=== PATIENT | female | born 2000 | race Caucasian/White ===

== ENCOUNTER 2019-03-29 13:24 | Inpatient (IN) | payer BC ==
[~2019-03-29] VITALS: Ht 162.6 cm; Wt 76.4 kg
[2019-03-29 13:31] VITALS: BP 119/77; RESP 18
[2019-03-29 13:37] VITALS: Ht 162.6 cm; Wt 76.4 kg
[2019-03-29] MEDS ORDERED: [UNRECOGNIZED DRUG - CODE] PO (13:39)
[2019-03-29] MEDS ORDERED: MAGNESIUM SULFATE 4 GM/100 ML 100 ML IV ONE (19:00)
[2019-03-29] MEDS: LACTATED RINGER'S 1,000 ML IV SCH (21:18)
[2019-03-29] MEDS: BETAMET NA PHOS/AC(6 MG/ML) 2 ML INJ SYG IM SCH (21:35)
[2019-03-29] MEDS: MAGNESIUM SULFATE 20 GM/500 ML 500 ML IV SCH (21:56)
--- NOTE | 2019-03-29 22:18 | HP ---
Date/Time of Note Date/Time of Note DATE: 03/29/19 TIME: 21:55 OB - History Hx of Present Free Text/Dictation 18 y.o at 29w3d for size and date,BPP and JACOBO NST,for twin gestation EFW of twinA 1191gm BPP8/8 MVP 5.0 ,,,,,,,,,,,,,twin b 1321gm 8/8 MVP 5.8 plan to discharge home ,but she was c/o cramping pain on lower abdomen. CVL measure only 2.8 admitted for BMZx2 and magnesium sulfate nnnnnnnnnnnnnnnnnnnnnnnnnnnnnnnnnnnnnnnnn nnnnnnnnnnnnnnnnnnnnnnnnnnnnnnnnnnnnnnnnnnnnnnnnnnnnnnnnnnnnnnnnnnnnnnnnnnnnnnnnnnnnnnnnnnnnnnnnnnnnnnnnnnnnnnnnnnnnnnnnnnnnnnnn nnnnnnnnnnnnnnnnnnnnnnnnnnnnnnnnnnnnnnnnnnnnnnnnnnnnnnnnnnnnnnnnnnnnnnnnnnnnnnnnnnnnnnnnnnnnnnnnnnnnnnnnnnnnnnnnnnnnnnnnnnnnnnnn nnnnnnnnnnnn Chief Complaint: antepartum test for twin Estimated Due Date: Jun 22, 2019 : 2 Para: 0 Spontaneous : 0 Therapeutic : 0 Care: Good Care Ultrasounds: Normal mid trimester US Obstetrical Complications: None Medical Complications: None Past Family/Social History * Past Medical, Surgical, Family and Obstetric Histories reviewed from chart. Blood Type: Unknown Rubella: unknown RPR/VDRL: Unknown GBS Status: Unknown HBsAG: Unknown OB Admission Exam Vital Signs Vital Signs Vital Signs Date Temp Pulse Resp B/P (MAP) Pulse Ox O2 O2 Flow FiO2 Time Delivery Rate 03/29/19 98.6 18 119/77 13:31 (91) Physical Exam HEENT: WNL Heart: Rhythm Normal Lungs: Clear, Equal Abdomen: WNL Extremities: Normal Reflexes: Normal Effacement: Other Station: Other Amniotic Fluid: Other Heart Rate: 140's Accelerations: Accelerations Present Decelerations: Early Decelerations Varibility: Minimum Contractions on Admission: None Intensity: Mild OB Assessment/Plan Reason for admission: labor, other (antepartum test) Other Assessment: IUP 29w3d short cx P bmzX 2 magnesium sulfate for neuroprotection GEORGE TOMAS MD Mar 29, 2019 22:05
[2019-03-30] MEDS: PRENATAL VITAMIN PO SCH (08:16)
[2019-03-30] MEDS: FERROUS SULFATE (EC) 325 MG TAB PO SCH (08:16)
[2019-03-30] MEDS: MAGNESIUM SULFATE 20 GM/500 ML 500 ML IV SCH ×2 (08:18→19:48)
[2019-03-30] MEDS: LACTATED RINGER'S 1,000 ML IV SCH ×2 (11:52→12:53)
[2019-03-30] MEDS: BETAMET NA PHOS/AC(6 MG/ML) 2 ML INJ SYG IM SCH (21:46)
[2019-03-31] MEDS: LACTATED RINGER'S 1,000 ML IV SCH (00:18)
[2019-03-31] MEDS: MAGNESIUM SULFATE 20 GM/500 ML 500 ML IV SCH (07:00)
[2019-03-31] MEDS: FERROUS SULFATE (EC) 325 MG TAB PO SCH (10:20)
[2019-03-31] MEDS: PRENATAL VITAMIN PO SCH (10:20)
--- NOTE | 2019-03-31 14:47 | QN ---
Documentation Comment Late entry note for 03/30/2019 29+ wks GA twins with PTL / short cervix EFW twin A 1191gm BPP 8/8 MVP 5.0 twin B 1321gm 8/8 MVP 5.8 no complaints vs stable afebrile ab gravid nt extremity no edema no calf tenderness fhr both twins cat 1 toco no ctx A/P s/p sterids for lung maturity continue with mgso4 Continue with present management STEVE ROLLINS MD Mar 31, 2019 14:47
--- NOTE | 2019-03-31 19:17 | PN ---
Date/Time of Note Date/Time of Note DATE: 03/31/19 TIME: 19:14 OB Subjective Subjective Subjective Patient seen and examined. She states babies have been active.. She denies nausea, vomiting, shortness of breath, chest pain, abdominal pain between contractions, headache, visual changes, vaginal bleeding or LOF. OB Objective Objective Objective General: Patient appears well, alert and oriented, NAD, appropriate mood and affect ABD: gravid, soft, non-tender. Back: No CVA tenderness (B/L) LE: Mild edema. No clubbing, cyanosis, edema, thigh or calf tenderness bilaterally FHT: 130 and 135 bpm , moderate variability with acceleration, no deceleration- category I Contractions: None OB Assessment/Plan Other plan: 18 years old 2 para 0-0-1-0 with single intrauterine at the 28 weeks and 3 days with twin gestation and threatened PTL - heart rates: Category 1 -Status post receiving magnesium sulfate and betamethasone -She currently has no further uterine contractions -Symptoms and sign of labor, preeclampsia, kick count discussed with patient, she voiced understanding. All of her questions answered. -Patient was discharged home in stable condition with the appropriate discharge instructions provided. I would like patient to have close follow-up with her primary physician or outpatient clinic in 1-2 days or return to triage for worsening symptoms or any other urgent concerns. SUMAN TUCKER Mar 31, 2019 19:17
--- NOTE | 2019-03-31 19:18 | DS ---
Date/Time of Note Date/Time of Note DATE: 03/31/19 TIME: 19:17 Obstetrical Discharge Record Final Diagnosis Final Diagnosis: not delivered Other Final Diagnosis 18 years old 2 para 0-0-1-0 with single intrauterine at the 28 weeks and 3 days with twin gestation and threatened PTL - heart rates: Category 1 -Status post receiving magnesium sulfate and betamethasone -She currently has no further uterine contractions -Symptoms and sign of labor, preeclampsia, kick count discussed with patient, she voiced understanding. All of her questions answered. -Patient was discharged home in stable condition with the appropriate discharge instructions provided. I would like patient to have close follow-up with her primary physician or outpatient clinic in 1-2 days or return to triage for worsening symptoms or any other urgent concerns. Condition on Discharge Physical Assessment Voiding: Yes Bowel Movement: Yes Breast: Soft, non-tender Calf Tenderness: No Patient Condition: Stable SUMAN TUCKER Mar 31, 2019 19:18
== END 2019-03-31 19:50 | disposition home or self-care (01) | DRG 832 ==
LOC: OBT 13:24 → L-D 13:26 → OBT 16:30 → L-D 16:30
PROVIDERS: ADMIT Obstetrics & Gynecology; ATTEND Obstetrics & Gynecology
DX: O60.03 Preterm labor without delivery, third trimester (principal); O26.873 Cervical shortening, third trimester; O30.003 Twin pregnancy, unspecified number of placenta and unspecified number of amniotic sacs, third trimester; Z3A.29 29 weeks gestation of pregnancy
CPT/HCPCS: 76815; 76817; 76818; 83735; G0463; J0702; J3475; J7120

== ENCOUNTER 2019-05-30 15:17 | Inpatient (IN) | payer BC ==
[~2019-05-30] VITALS: Ht 142.2 cm; Wt 51.6 kg
[~2019-05-30 15:17] MED LIST: [UNRECOGNIZED DRUG - CODE] PO
[2019-05-30 15:35] VITALS: BMI 33.1
[2019-05-30] MEDS ORDERED: CEFAZOLIN 2 GM/50 ML (PMX) 50 ML IVPB SCH (17:00)
[2019-05-30] MEDS ORDERED: MISOPROSTOL 200 MCG TAB PR PRN (17:00)
[2019-05-30] MEDS ORDERED: OXYTOCIN 30 UNITS/LR 500 ML IV PRN (17:00)
[2019-05-30] MEDS ORDERED: METHYLERGONOVINE 0.2 MG INJ IM PRN (17:00)
[2019-05-30] MEDS ORDERED: CARBOPROST 250 MCG INJ IM PRN (17:00)
[2019-05-30] MEDS: LACTATED RINGER'S 1,000 ML IV SCH (22:35)
[2019-05-31] MEDS: LACTATED RINGER'S 1,000 ML IV SCH ×3 (02:44→19:56)
[2019-05-31 04:18] VITALS: Ht 142.2 cm; Wt 51.6 kg
[2019-05-31] MEDS ORDERED: LACTATED RINGER'S 1,000 ML IV PRN (04:20)
[2019-05-31] MEDS ORDERED: LACTATED RINGER'S 1,000 ML IV SCH (04:20)
[2019-05-31] MEDS ORDERED: METHYLERGONOVINE 0.2 MG INJ IM PRN (04:30)
[2019-05-31] MEDS ORDERED: BUTORPHANOL 2 MG INJ IV PRN (04:30)
[2019-05-31] MEDS ORDERED: LIDOCAINE 1% (MPF) 30 ML INJ INJ PRN (04:30)
[2019-05-31] MEDS ORDERED: IBUPROFEN 600 MG TAB PO PRN (04:30)
[2019-05-31] MEDS ORDERED: MISOPROSTOL 200 MCG TAB PR PRN (04:30)
[2019-05-31] MEDS ORDERED: OXYTOCIN 30 UNITS/LR 500 ML IV SCH ×2 (04:30)
[2019-05-31] MEDS ORDERED: OXYTOCIN 30 UNITS/LR 500 ML IV PRN (04:30)
[2019-05-31] MEDS ORDERED: CARBOPROST 250 MCG INJ IM PRN (04:30)
[2019-05-31] MEDS ORDERED: CITRIC ACID/NA CITRATE 30 ML CUP PO ONE (19:30)
[2019-05-31] MEDS ORDERED: METOCLOPRAMIDE 10 MG INJ ONE (20:39)
[2019-05-31] MEDS ORDERED: KETOROLAC 30 MG INJ ONE (20:39)
[2019-05-31] MEDS ORDERED: morphine SULFATE/PF (10 MG/10 ML) INJ ONE (20:39)
[2019-05-31] MEDS ORDERED: FENTAnyl 50 MCG/ML VIAL ONE (21:16)
[2019-05-31] MEDS ORDERED: ONDANSETRON 4 MG INJ ONE (21:45)
[2019-05-31] MEDS ORDERED: EPHEDrine 25 MG/5 ML SYG ONE (21:48)
[2019-05-31] MEDS ORDERED: OXYTOCIN 30 UNITS/LR 500 ML IV ONE (21:52)
[2019-05-31] MEDS: OXYTOCIN 30 UNITS/LR 500 ML IV SCH ×2 (23:05→23:33)
[2019-06-01] VITALS (9 sets, daily range): BP systolic 118–129; BP diastolic 62–89; PULSE 72–114; RESP 16–20
[2019-06-01] MEDS ORDERED: ONDANSETRON 4 MG INJ IV PRN ×2
[2019-06-01] MEDS ORDERED: morphine 2 MG INJ IV PRN ×6
[2019-06-01] MEDS ORDERED: NALOXONE (0.4 MG/ML) INJ IV PRN
[2019-06-01] MEDS ORDERED: DIPHENHYDRAMINE 50 MG INJ IV PRN
[2019-06-01] MEDS ORDERED: KETOROLAC 30 MG INJ IV PRN
[2019-06-01] MEDS ORDERED: OXYTOCIN 30 UNITS/LR 500 ML IV SCH (00:52)
[2019-06-01] MEDS ORDERED: METHYLERGONOVINE 0.2 MG INJ IM PRN (01:00)
[2019-06-01] MEDS ORDERED: CARBOPROST 250 MCG INJ IM PRN (01:00)
[2019-06-01] MEDS ORDERED: MAGNESIUM HYDROXIDE 30ML CUP PO PRN (01:00)
[2019-06-01] MEDS ORDERED: MISOPROSTOL 200 MCG TAB PR PRN (01:00)
[2019-06-01] MEDS ORDERED: METHYLERGONOVINE 0.2 MG TAB PO PRN (01:00)
[2019-06-01] MEDS ORDERED: OXYTOCIN 30 UNITS/LR 500 ML IV PRN (01:00)
[2019-06-01] MEDS: LANOLIN HPA 1 PKT TOP PRN (06:59)
[2019-06-01] MEDS: SENNA/DOCUSATE NA (8.6MG/50MG) TAB PO SCH (10:38)
[2019-06-01] MEDS ORDERED: DIPHTH/TET/ACEL PERTUSS (ADULT) 0.5 ML VIAL IM* ONE (11:00)
[2019-06-01] MEDS: DEXTROSE 5%-LR 1,000 ML IV SCH ×3 (13:06→17:45)
[2019-06-01] MEDS ORDERED: LACTATED RINGER'S 500 ML IV ONE (13:30)
[2019-06-01] MEDS ORDERED: OXYCODONE/ACETAMINOPHEN (5/325) TAB PO PRN ×2 (22:30)
[2019-06-01] MEDS: LACTATED RINGER'S 1,000 ML IV SCH (23:48)
[2019-06-01] MEDS: IBUPROFEN 800 MG TAB PO SCH (23:48)
[2019-06-02] MEDS ORDERED: HYDROCODONE/APAP (5/325) TAB PO PRN
[2019-06-02 00:12] VITALS: BP 131/78; PULSE 92; RESP 20
[2019-06-02] MEDS: PIPER-TAZO 3.375 GM IV (PMX) 100 ML IVPB SCH ×4 (00:17→22:51)
[2019-06-02] MEDS: SENNA/DOCUSATE NA (8.6MG/50MG) TAB PO SCH ×3 (00:33→20:07)
[2019-06-02 04:00] VITALS: BP 125/77; PULSE 82; RESP 19
[2019-06-02] MEDS ORDERED: IBUPROFEN 800 MG TAB PO SCH (06:00)
[2019-06-02] MEDS: HYDROCODONE/APAP (5/325) TAB PO SCH ×3 (07:48→22:00)
[2019-06-02] MEDS: IBUPROFEN 800 MG TAB PO SCH ×3 (07:48→22:58)
[2019-06-02] MEDS: LACTATED RINGER'S 1,000 ML IV SCH ×3 (07:50→23:30)
[2019-06-02 08:00] VITALS: BP 120/80; PULSE 84; RESP 18
[2019-06-02 15:35] VITALS: BP 138/95; PULSE 75; RESP 18
[2019-06-02 20:00] VITALS: BP 132/80; RESP 20
[2019-06-02 23:17] VITALS: BP 128/92; PULSE 74; RESP 20
[2019-06-02] MEDS: DEXTROSE 5%-LR 1,000 ML IV SCH (23:52)
[2019-06-03] MEDS: DEXTROSE 5%-LR 1,000 ML IV SCH (00:52)
[2019-06-03] MEDS: HYDROCODONE/APAP (5/325) TAB PO SCH ×3 (04:33→19:30)
[2019-06-03 04:48] VITALS: BP 133/83; PULSE 64; RESP 20
[2019-06-03] MEDS: IBUPROFEN 800 MG TAB PO SCH ×3 (06:02→21:59)
[2019-06-03] MEDS: PIPER-TAZO 3.375 GM IV (PMX) 100 ML IVPB SCH (06:02)
[2019-06-03] MEDS: LACTATED RINGER'S 1,000 ML IV SCH (06:02)
[2019-06-03 08:00] VITALS: BP 130/99; PULSE 86; RESP 18
[2019-06-03] MEDS ORDERED: MEASLES,MUMPS,RUBELLA VACCINE INJ SC* ONE (09:00)
[2019-06-03] MEDS ORDERED: DIPHTH/TET/ACEL PERTUSS (ADULT) 0.5 ML VIAL IM* ONE (09:00)
[2019-06-03 09:30] VITALS: BP 127/93; PULSE 84; RESP 18
[2019-06-03] MEDS: SENNA/DOCUSATE NA (8.6MG/50MG) TAB PO SCH ×2 (09:47→21:14)
[2019-06-03] MEDS: LABETALOL 200 MG TAB PO SCH ×2 (11:24→21:16)
[2019-06-03] MEDS: LANOLIN HPA 1 PKT TOP PRN (12:17)
[2019-06-03 16:00] VITALS: BP 119/93; PULSE 69; RESP 18
[2019-06-03 20:15] VITALS: BP 122/89; PULSE 99; RESP 20
[2019-06-04] MEDS: HYDROCODONE/APAP (5/325) TAB PO SCH (00:53)
[2019-06-04 04:14] VITALS: BP 117/82; PULSE 83; RESP 17
[2019-06-04] MEDS: IBUPROFEN 800 MG TAB PO SCH (05:33)
[2019-06-04 08:00] VITALS: BP 134/95; PULSE 84; RESP 20
[2019-06-04] MEDS: SENNA/DOCUSATE NA (8.6MG/50MG) TAB PO SCH (08:45)
[2019-06-04] MEDS: LABETALOL 200 MG TAB PO SCH (08:45)
[2019-06-04] MEDS ORDERED: MEASLES,MUMPS,RUBELLA VACCINE INJ SC* ONE (09:00)
[2019-06-04 10:11] VITALS: BP 118/77
== END 2019-06-04 13:25 | disposition home or self-care (01) | DRG 788 ==
LOC: OBT 15:17 → L-D 15:19 → OBT 16:43 → L-D 16:43 → PP1 06-01 00:46
PROVIDERS: ADMIT Obstetrics & Gynecology; ATTEND Obstetrics & Gynecology
PROC: 10907ZC Drainage of Amniotic Fluid, Therapeutic from Products of Conception, Via Natural or Artificial Opening (ICD-10-PCS; 2019-05-31)
PROC: 10D00Z1 Extraction of Products of Conception, Low, Open Approach (ICD-10-PCS; principal; 2019-05-31 19:30)
DX: O30.003 Twin pregnancy, unspecified number of placenta and unspecified number of amniotic sacs, third trimester (principal); Z37.2 Twins, both liveborn; O32.1XX1 Maternal care for breech presentation, fetus 1; Z3A.37 37 weeks gestation of pregnancy
CPT/HCPCS: 76818; 80053; 81001; 81003; 82570; 83615; 84560; 85025; 85384; 85610; 85730; 86592; 86850; 86900; 86901; 87086; 87340; 90715; 99464; G0463; J0690; J1885; J2270; J2274; J2405; J2543; J2590; J2765; J3010; J7120; J7121